=== PATIENT | male | born 1960 | race Caucasian/White ===

== ENCOUNTER 2018-01-02 14:35 | Outpatient (CLI) | payer OTHER ==
--- NOTE | 2018-01-02 17:33 | MRI ---
MRI RIGHT ANKLE PERFORMED WITHOUT CONTRAST ENHANCEMENT: HISTORY: The patient injured ankle a few months ago with persistent pain. COMPARISON: Plain film examination from 11/19/2017. FINDINGS: The Achilles tendon is intact. Some trace fluid within the retrocalcaneal bursa. The anterior extensor group is normal in appearance. The peroneus longus and brevis tendons are inta ct. The posterior tibialis, the flexor digitorum longus, and the flexor hallucis longus tendons are normal in appearance. The plantar fascia is normal. Lisfranc ligament is intact. The sinus tarsi region is unremarkable. There is a combination of old and new ankle injury. This includes an old avulsion of the anterior ta lofibular ligament, which is avulsed with a small fragment of sclerotic appearing bone, but there is also edema change in this area and in the region of the calcaneal fibular ligament, compatible with a more recent ankle sprain. There is also edema change adjacent to the upper portion of the syndesmot ic ligament and some edema change in this area, suggesting some element of a high ankle sprain. Ther e is subarticular edema change involving the more posterior aspect of the talar dome and tibial plafo nd, which could represent residual bone marrow edema change, given the age of the injury. There is a lso edema change associated with the tip of the fibula, consistent with a bone contusion. There are several small ossified fragments seen adjacent to the tip of the fibula. I believe most if not all t hese are related to older injury. There is evidence of muscle edema change involving the flexor hallucis longus muscle and the peroneus brevis muscle. This is probably related to muscle strain. Also, these changes involve the Achilles and could be related to altered walking dynamics. IMPRESSION: 1. Evidence of edema change involving the soleus, flexor hallucis longus, and peroneus brevis muscle s, suggesting muscle strain. Some or all of these changes could be on the basis of some altered walk ing dynamics, related to pain. 2. Findings of old plus new lateral ankle sprain. 3. Some mild subchondral marrow edema change involving the tibia and talar dome, which could just re present resolving residual edema change. A subcortical distribution is also seen chronic regional pain syndrome or so-called reflex sympatheti c dystrophy, but this is typically more diffuse than is seen on this exam. POS: [facility]
== END 2018-01-02 14:36 | disposition home or self-care (01) ==
LOC: TBSIIMAG 14:35
PROVIDERS: ATTEND Family Medicine
DX: S93.411D Sprain of calcaneofibular ligament of right ankle, subsequent encounter (principal); S93.401A Sprain of unspecified ligament of right ankle, initial encounter; R93.7 Abnormal findings on diagnostic imaging of other parts of musculoskeletal system

== ENCOUNTER 2018-03-27 21:37 | Emergency (ER) | payer BC ==
--- NOTE | 2018-03-27 21:56 | RAD ---
CHEST ONE VIEW: HISTORY: Chest pain. FINDINGS: The cardiac silhouette is magnified by projection. The pulmonary vasculature is unremarkable. The m ediastinum is midline. No lobar consolidation or evidence of pneumothorax. IMPRESSION: No active cardiopulmonary abnormalities demonstrated. POS: [facility]
[2018-03-27] MEDS ORDERED: Metoclopramide HCl 10 MG/2 ML VIAL ONE (22:36)
[2018-03-27] MEDS ORDERED: Meclizine HCl 25 MG TAB ONE (22:36)
[2018-03-27] MEDS ORDERED: Ondansetron ODT 4 MG TAB ONE (22:36)
--- NOTE | 2018-03-27 22:53 | CT ---
CT HEAD NONCONTRAST: HISTORY: Altered mental status. COMPARISON: None. FINDINGS: There is no evidence of acute intracranial hemorrhage or infarct. There is mild diffuse cortical atr ophy and chronic ischemic small vessel disease. There is no mass effect or shift of midline structur es. The visualized paranasal sinuses remain well aerated. IMPRESSION: No acute intracranial abnormalities are demonstrated on noncontrast CT head. POS: [facility]
[2018-03-27 22:57] LABS: #Basophils 0.1 thou/uL (0.0-0.2); #Eosinphils 0.1 thou/uL (0.0-0.7); #Lymphocytes 2.4 thou/uL (1.20-3.40); #Monocytes 0.4 thou/uL (0.11-0.59); #Neutrophils 4.1 thou/uL (1.40-6.50); %Basophils 1.1 % (0.0-1.0); %Monocytes 5.2 % (0.0-10.0); %Neutrophils 58.8 % (42.0-75.0); Hemoglobin 13.3 g/dL (14.0-18.0); Mean Corpuscular HGB CONC 36.1 g/dL (32.0-36.0); Mean Corpuscular Hemoglobin 29.9 pg (27.0-31.0); Mean Corpuscular Volume 82.8 fL (78.0-98.0); Mean Platelet Volume 7.2 fL (7.4-10.4); Platelet Count 206 thou/uL (130-400); RBC Distribution Width 12.9 % (11.5-14.5); Red Blood Cell (RBC) Count 4.44 mill/uL (4.70-6.10)
[2018-03-27 23:06] LABS: PTT 33.5 SEC (22.9-36.1); Prothrombin Time 12.9 SEC (12.0-14.7)
[2018-03-27 23:21] LABS: ALT (SGPT) 18 U/L (8-55); AST (SGOT) 13 U/L (5-34); Albumin 4.4 g/dL (3.5-5.0); Alkaline Phosphatase 59 U/L (40-150); Anion Gap 14 mmol/L (10-20); BUN (Urea Nitrogen) 20 mg/dL (8.4-25.7); Bilirubin, Total 0.6 mg/dL (0.2-1.2); CK (CPK) 52 U/L (30-200); Calc. Creatinine Clearance 0 mL/min (70-130); Calcium 9.6 mg/dL (7.8-10.44); Carbon Dioxide 24 mmol/L (22-29); Chloride 105 mmol/L (98-107); Estimated GFR-MDRD Greater than 90; Globulin 2.9 g/dL (2.4-3.5); Glucose 115 mg/dL (70-105); Potassium 3.6 mmol/L (3.5-5.1); Protein, Total 7.3 g/dL (6.0-8.3); Sodium 139 mmol/L (136-145)
[2018-03-27 23:24] LABS: CKMB 0.5 ng/mL (0-6.6); Troponin I Less than 0.010 ng/mL (< 0.028)
--- NOTE | 2018-03-29 13:46 | EKG ---
Test Reason : Blood Pressure : / mmHG Vent. Rate : 067 BPM Atrial Rate : 067 BPM P-R Int : 174 ms QRS Dur : 078 ms QT Int : 390 ms P-R-T Axes : 066 019 054 degrees QTc Int : 412 ms Normal sinus rhythm Normal ECG Confirmed by VERN GARCIA, MONTSE ([id number]), commercial production editor BRANDON CORTEZ ([id number] on 03/29/2018 1:45:43 PM Referred By: Confirmed By:MONTSE PORRAS MD
== END 2018-03-28 00:16 | disposition home or self-care (01) ==
LOC: ERS 21:37
DX: R42 Dizziness and giddiness (principal); E78.5 Hyperlipidemia, unspecified; Z79.899 Other long term (current) drug therapy
CPT/HCPCS: 36415; 70450; 71045; 80053; 82553; 83880; 84484; 85025; 85610; 85730; 93005; 96365; J2765; Q0162

== ENCOUNTER 2022-08-24 17:37 | Emergency (ER) | payer BC | END 2022-08-24 18:27 | disposition home or self-care (01) | LOC: ERS 17:37 | DX: R07.9 Chest pain, unspecified (principal) | CPT/HCPCS: 99284 ==